=== PATIENT | female | born 2000 ===

== ENCOUNTER 2021-06-07 15:05 | Day surgery (SDC) | payer SELFPAY ==
[2021-06-07] MEDS ORDERED: Bupivacaine 0.25% HCL 30 ML VIAL ONE (15:17)
[2021-06-07] MEDS ORDERED: Midazolam HCl 2 mg/2 ml Vial ONE (15:17)
[2021-06-07] MEDS ORDERED: Fentanyl 100 MCG/2 ML VIAL ONE ×2 (15:17→16:47)
[2021-06-07] MEDS ORDERED: Lidocaine 1% w/Epinephrine 1:100K 20 ML VIAL ONE (15:17)
[2021-06-07] MEDS ORDERED: Rocuronium Bromide 50 MG/5 ML VIAL ONE (15:21)
[2021-06-07] MEDS ORDERED: PROPOFOL 200 MG/20 ML VIAL ONE (15:50)
[2021-06-07] MEDS ORDERED: Dexamethasone 20 MG/5 ML VIAL ONE (15:50)
[2021-06-07] MEDS ORDERED: Lidocaine 1% PF 5 ML VIAL ONE (15:50)
[2021-06-07] MEDS ORDERED: Ondansetron PF 4 MG/2 ML Vial ONE (15:50)
[2021-06-07] MEDS ORDERED: Rocuronium Bromide 10 MG/ML (10ML VIAL) ONE (15:50)
[2021-06-07] MEDS ORDERED: Ketorolac Tromethamine 30 MG/ML VIAL ONE (15:50)
[2021-06-07] MEDS ORDERED: SUGAMMADEX SODIUM 200 MG/2 ML VIAL ONE (15:59)
[2021-06-07] MEDS ORDERED: Levofloxacin 500 mg/D5W 100 ml Premix Bag ONE (18:18)
== END 2021-06-07 18:00 | disposition home or self-care (01) ==
LOC: SDC 15:05
PROVIDERS: ATTEND Surgery
PROC: 0DTJ4ZZ Resection of Appendix, Percutaneous Endoscopic Approach (ICD-10-PCS; principal; 2021-06-07)
DX: K35.80 Unspecified acute appendicitis (principal); E66.9 Obesity, unspecified; Z79.899 Other long term (current) drug therapy; Z96.0 Presence of urogenital implants
CPT/HCPCS: 88304; J1100; J1885; J1956; J2250; J2405; J2704; J3010; S0020